=== PATIENT | female | born 1985 | race Caucasian/White ===

== ENCOUNTER 2020-07-04 20:54 | Emergency (ER) | payer OTHER | END 2020-07-04 22:18 | disposition home or self-care (01) | LOC: FER 20:54 | DX: K08.89 Other specified disorders of teeth and supporting structures (principal); R51.9 Headache, unspecified; J45.909 Unspecified asthma, uncomplicated; Z98.818 Other dental procedure status | CPT/HCPCS: 99282; Q0163 ==